=== PATIENT | male | born 1985 | race African-American/Black ===

== ENCOUNTER 2017-02-04 23:36 | Emergency (ER) | payer SELFPAY ==
[~2017-02-04] VITALS: Ht 180.3 cm; Wt 88.0 kg
[~2017-02-04 23:36] MED LIST: Z.0.NO CURRENT MEDS
[2017-02-04 23:37] VITALS: BP 135/85; PULSE 90; RESP 18; TEMP 98.8; O2SAT 100
[2017-02-05] MEDS ORDERED: SODIUM CHLOR 0.9% 1000 ML INJ 1,000 ML IV SCH (00:23)
[2017-02-05] MEDS ORDERED: ONDANSETRON HCL 4 MG/2 ML VIAL IVP ONE (00:30)
[2017-02-05] MEDS ORDERED: MORPHINE SULFATE 4 MG/ML INJ IV PUSH ONE (00:30)
[2017-02-05] MEDS ORDERED: SODIUM CHLORIDE 0.9% FLUSH 10 ML FLUSH IV FLUSH PRN (00:30)
[2017-02-05 00:42] LABS: AUTOMATED NEUTROPHIL # 2.8 TH/MM3 (1.8-7.7); BASOPHIL % 0.3 % (0.0-2.0); EOSINOPHIL # 0.1 TH/MM3 (0-0.4); EOSINOPHIL % 1.2 % (0.0-4.0); HEMO FLAGS DIFF FINAL; LYMPH % 56.9 % (9.0-44.0); LYMPHOCYTE # 4.9 TH/MM3 (1.0-4.8); MEAN CELL VOLUME 81.5 FL (80.0-100.0); MEAN CORPUSCULAR HEMOGLOBIN 27.2 PG (27.0-34.0); MEAN CORPUSCULAR HGB CONC 33.4 % (32.0-36.0); MONO % 9.1 % (0.0-8.0); NEUT % 32.5 % (16.0-70.0); PLATELET COUNT 160 TH/MM3 (150-450); RED BLOOD COUNT 4.91 MIL/MM3 (4.50-5.90); RED CELL DISTRIBUTION WIDTH 13.5 % (11.6-17.2); WHITE BLOOD COUNT 8.7 TH/MM3 (4.0-11.0)
[2017-02-05 00:55] VITALS: RESP 16
[2017-02-05 00:55] LABS: APTT (PATIENT) 21.9 SEC (24.3-30.1); PROTHROMBIN TIME - PATIENT 10.5 SEC (9.8-11.6)
--- NOTE | 2017-02-05 01:05 | PD ---
HPI Chief Complaint: Abdominal Pain Time Seen by Provider: 00:17 Travel History International Travel<30 days: No Contact w/Intl Traveler<30days: No Traveled to known affect area: No History of Present Illness HPI Patient is a 31-year-old male who presents to emergency room with complaints of right lower quadrant abdominal pain. Patient reports that he was sleeping tonight, reports that he woke up with severe pain to his right lower quadrant. Patient reports no fevers or chills, denies any nausea or vomiting. Reports that he last had a bowel movement yesterday. Patient denies any dysuria, urinary frequency or frequency. PFSH Past Medical History Medical History: Denies Significant Hx Diminished Hearing: No Immunizations Current: No Past Surgical History Surgical History: No Previous Surgery Social History Alcohol Use: Yes (OCC) Tobacco Use: No Substance Use: No Allergies-Medications (Allergen,Severity, Reaction): Coded Allergies: No Known Allergies (Verified , 02/05/17) Reported Meds & Prescriptions Reported Meds & Active Scripts Active Ibuprofen 600 Mg Tab 600 Mg PO Q6H PRN Percocet (Oxycodone-Acetaminophen) 2.5-325 mg Tab 1 Tab PO Q6H PRN Flomax (Tamsulosin HCl) 0.4 Mg Cap 0.4 Mg PO HS Review of Systems General / Constitutional: No: Fever Eyes: No: Visual changes HENT: No: Headaches Cardiovascular: No: Chest Pain or Discomfort Respiratory: No: Shortness of Breath Gastrointestinal: Positive: Abdominal Pain, No: Nausea, Vomiting Genitourinary: No: Dysuria Musculoskeletal: No: Pain Skin: No Rash Neurologic: No: Weakness Psychiatric: No: Depression Endocrine: No: Polydipsia Hematologic/Lymphatic: No: Easy Bruising Physical Exam Narrative GENERAL: Moderate distress SKIN: Focused skin assessment warm/dry. HEAD: Atraumatic. Normocephalic. EYES: Pupils equal and round. No scleral icterus. No injection or drainage. ENT: No nasal bleeding or discharge. Mucous membranes pink and moist. NECK: Trachea midline. No JVD. CARDIOVASCULAR: Regular rate and rhythm. No murmur appreciated. RESPIRATORY: No accessory muscle use. Clear to auscultation. Breath sounds equal bilaterally. GASTROINTESTINAL: Abdomen soft, patient with right lower quadrant tenderness with rebound and guarding on exam MUSCULOSKELETAL: No obvious deformities. No clubbing. No cyanosis. No edema. NEUROLOGICAL: Awake and alert. No obvious cranial nerve deficits. Motor grossly within normal limits. Normal speech. PSYCHIATRIC: Appropriate mood and affect; insight and judgment normal. Data Data Last Documented VS Vital Signs Date Time Temp Pulse Resp B/P Pulse Ox O2 Delivery O2 Flow Rate FiO2 02/05/17 02:40 16 02/05/17 01:58 78 144/74 02/04/17 23:37 98.8 100 Orders Complete Blood Count With Diff (02/05/17:) Comprehensive Metabolic Panel (02/05/17:) Lipase (02/05/17:23) Prothrombin Time / Inr (Pt) (02/05/17:) Act Partial Throm Time (Ptt) (02/05/17:) Urinalysis - C+S If Indicated (02/05/17:23) Ct Abd/Pel W Iv Contrast(Rout) (02/05/17:23) Iv Access Insert/Monitor (02/05/17) Oximetry (02/05/17:) NPO (02/05/17:23) Morphine Inj (Morphine Inj) (02/05/17 00:30) Ondansetron Inj (Zofran Inj) (02/05/17 00:30) Sodium Chlor 0.9% 1000 Ml Inj (Ns 1000 M (02/05/17 00:23) Sodium Chloride 0.9% Flush (Ns Flush) (02/05/17 00:30) Iohexol 350 Inj (Omnipaque 350 Inj) (02/05/17 01:37) Hydromorphone Pf Inj (Dilaudid Pf Inj) (02/05/17 02:00) Ketorolac Inj (Toradol Inj) (02/05/17 02:45) Strain Urine PRN (02/05/17 04:10) Labs Laboratory Tests Test 02/05/17 02/05/17 00:30 03:15 White Blood Count 8.7 TH/MM3 Red Blood Count 4.91 MIL/MM3 Hemoglobin 13.4 GM/DL Hematocrit 40.0 % Mean Corpuscular Volume 81.5 FL Mean Corpuscular Hemoglobin 27.2 PG Mean Corpuscular Hemoglobin 33.4 % Concent Red Cell Distribution Width 13.5 % Platelet Count 160 TH/MM3 Mean Platelet Volume 9.7 FL Neutrophils (%) (Auto) 32.5 % Lymphocytes (%) (Auto) 56.9 % Monocytes (%) (Auto) 9.1 % Eosinophils (%) (Auto) 1.2 % Basophils (%) (Auto) 0.3 % Neutrophils # (Auto) 2.8 TH/MM3 Lymphocytes # (Auto) 4.9 TH/MM3 Monocytes # (Auto) 0.8 TH/MM3 Eosinophils # (Auto) 0.1 TH/MM3 Basophils # (Auto) 0.0 TH/MM3 CBC Comment DIFF FINAL Differential Comment Prothrombin Time 10.5 SEC Prothromb Time International 1.0 RATIO Ratio Activated Partial 21.9 SEC Thromboplast Time Sodium Level 143 MEQ/L Potassium Level 3.3 MEQ/L Chloride Level 106 MEQ/L Carbon Dioxide Level 27.6 MEQ/L Anion Gap 9 MEQ/L Blood Urea Nitrogen 16 MG/DL Creatinine 1.38 MG/DL Estimat Glomerular Filtration 73 ML/MIN Rate Random Glucose 135 MG/DL Calcium Level 8.5 MG/DL Total Bilirubin 0.3 MG/DL Aspartate Amino Transf 15 U/L (AST/SGOT) Alanine Aminotransferase 25 U/L (ALT/SGPT) Alkaline Phosphatase 61 U/L Total Protein 7.7 GM/DL Albumin 3.7 GM/DL Lipase 156 U/L Urine Color YELLOW Urine Turbidity CLEAR Urine pH 7.0 Urine Specific [place] GREATER THAN 1.050 Urine Protein TRACE mg/dL Urine Glucose (UA) NEG mg/dL Urine Ketones 40 mg/dL Urine Occult Blood TRACE Urine Nitrite NEG Urine Bilirubin NEG Urine Urobilinogen LESS THAN 2.0 MG/DL Urine Leukocyte Esterase NEG Urine RBC 8 /hpf Urine WBC 1 /hpf Urine Mucus FEW /lpf Microscopic Urinalysis Comment CULT NOT INDICATED MDM Medical Decision Making Medical Screen Exam Complete: Yes Emergency Medical Condition: Yes Medical Record Reviewed: Yes Interpretation(s) Vital Signs Date Time Temp Pulse Resp B/P Pulse Ox O2 Delivery O2 Flow Rate FiO2 02/05/17 00:55 16 02/05/17 00:55 18 02/04/17 23:37 98.8 90 18 135/85 100 Differential Diagnosis Differential includes appendicitis, gastritis, gastritis, constipation, colitis Narrative Course 31-year-old male who presents to emergency room complaints of right lower quadrant abdominal pain. Patient reports the pain woke him up from sleep tonight. On exam, patient does have right lower quadrant tenderness, I am concerned for possible appendicitis. Lab work including CT of the abdomen pelvis ordered to evaluate for possible appendicitis. Will give IV fluids and pain medications. Patient with no relief of pain after IV morphine administered, IV dilaudid ordered Vital Signs Date Time Temp Pulse Resp B/P Pulse Ox O2 Delivery O2 Flow Rate FiO2 02/05/17 02:40 16 02/05/17 01:58 78 20 144/74 02/05/17 00:55 16 02/05/17 00:55 18 02/04/17 23:37 98.8 90 18 135/85 100 Laboratory Tests Test 02/05/17 02/05/17 00:30 03:15 White Blood Count 8.7 TH/MM3 (4.0-11.0) Red Blood Count 4.91 MIL/MM3 (4.50-5.90) Hemoglobin 13.4 GM/DL (13.0-17.0) Hematocrit 40.0 % (39.0-51.0) Mean Corpuscular Volume 81.5 FL (80.0-100.0) Mean Corpuscular Hemoglobin 27.2 PG (27.0-34.0) Mean Corpuscular Hemoglobin 33.4 % Concent (32.0-36.0) Red Cell Distribution Width 13.5 % (11.6-17.2) Platelet Count 160 TH/MM3 (150-450) Mean Platelet Volume 9.7 FL (7.0-11.0) Neutrophils (%) (Auto) 32.5 % (16.0-70.0) Lymphocytes (%) (Auto) 56.9 % (9.0-44.0) Monocytes (%) (Auto) 9.1 % (0.0-8.0) Eosinophils (%) (Auto) 1.2 % (0.0-4.0) Basophils (%) (Auto) 0.3 % (0.0-2.0) Neutrophils # (Auto) 2.8 TH/MM3 (1.8-7.7) Lymphocytes # (Auto) 4.9 TH/MM3 (1.0-4.8) Monocytes # (Auto) 0.8 TH/MM3 (0-0.9) Eosinophils # (Auto) 0.1 TH/MM3 (0-0.4) Basophils # (Auto) 0.0 TH/MM3 (0-0.2) CBC Comment DIFF FINAL Differential Comment Prothrombin Time 10.5 SEC (9.8-11.6) Prothromb Time International 1.0 RATIO Ratio Activated Partial 21.9 SEC Thromboplast Time (24.3-30.1) Sodium Level 143 MEQ/L (136-145) Potassium Level 3.3 MEQ/L (3.5-5.1) Chloride Level 106 MEQ/L (98-107) Carbon Dioxide Level 27.6 MEQ/L (21.0-32.0) Anion Gap 9 MEQ/L (5-15) Blood Urea Nitrogen 16 MG/DL (7-18) Creatinine 1.38 MG/DL (0.60-1.30) Estimat Glomerular Filtration 73 ML/MIN (>89) Rate Random Glucose 135 MG/DL (74-106) Calcium Level 8.5 MG/DL (8.5-10.1) Total Bilirubin 0.3 MG/DL (0.2-1.0) Aspartate Amino Transf 15 U/L (15-37) (AST/SGOT) Alanine Aminotransferase 25 U/L (12-78) (ALT/SGPT) Alkaline Phosphatase 61 U/L (45-117) Total Protein 7.7 GM/DL (6.4-8.2) Albumin 3.7 GM/DL (3.4-5.0) Lipase 156 U/L (73-393) Urine Color YELLOW (YELLW/STRAW) Urine Turbidity CLEAR (CLEAR) Urine pH 7.0 (5.0-8.5) Urine Specific [place] GREATER THAN 1.050 (1.002-1.035) Urine Protein TRACE mg/dL (NEG-TRACE) Urine Glucose (UA) NEG mg/dL (NEG) Urine Ketones 40 mg/dL (NEG) Urine Occult Blood TRACE (NEG) Urine Nitrite NEG (NEG) Urine Bilirubin NEG (NEG) Urine Urobilinogen LESS THAN 2.0 MG/DL (LESS THAN 2.0) Urine Leukocyte Esterase NEG (NEG) Urine RBC 8 /hpf (0-3) Urine WBC 1 /hpf (0-5) Urine Mucus FEW /lpf (OCC) Microscopic Urinalysis Comment CULT NOT INDICATED Last Impressions Abdomen/Pelvis CT 02/05/17 0023 Signed Impressions: Service Date/Time: Sunday, February 05, 2017 01:38 - CONCLUSION: Miniscule distal right ureteral stone with moderate right hydronephrosis. Giacomo Zepeda MD Patient reevaluated, patient feeling much better at this time. I reviewed all labs and all studies as well as all findings with patient in detail. Patient will follow-up with his primary care doctor as well as urologist and return to the emergency room as needed. Patient will strain his urine, will bring his kidney stone to his urologist office for follow-up. Patient understands that he should not drive while taking narcotic pain medications Diagnosis Primary Impression: Kidney stone Additional Impressions: Hydronephrosis Renal insufficiency Referrals: Kenney Macias DO Patient Instructions: Narcotic given in the ED, General Instructions Departure Forms: Tests/Procedures, Work Release Enter return to work date: Feb 09, 2017 Additional Instructions: Please provide patient with a copy of his lab work and studies at discharge Please strain your urine A kidney stone to urologist for evaluation of stone Please call urologist first thing in the morning for earliest follow-up Do not drive while taking narcotic pain medications Return to ER as needed Med/Other Pt SpecificInfo: Prescription(s) given Scripts Ibuprofen 600 Mg [id number] Mg PO Q6H PRN (Pain/Inflammation) #40 TAB Ref 0 Prov:Angie Hanna DO 02/05/17 Oxycodone-Acetaminophen (Percocet)2.5-325 mg Tab1 Tab PO Q6H PRN (PAIN SCALE 1 TO 10) #12 TAB Ref 0 Prov:JacquesAngie Mallory DO 02/05/17 Tamsulosin (Flomax)0.4 Mg Cap0.4 Mg PO HS #7 CAP Ref 0 Prov:Angie Hanna DO 02/05/17 Disposition: DISCHARGE HOME Condition: Stable HannaAngie DO Feb 05, 2017 01:05
[2017-02-05 01:25] LABS: ALT (GPT) 25 U/L (12-78); ANION GAP 9 MEQ/L (5-15); AST (GOT) 15 U/L (15-37); BICARBONATE 27.6 MEQ/L (21.0-32.0); BLOOD UREA NITROGEN 16 MG/DL (7-18); CHLORIDE 106 MEQ/L (98-107); GLOMERULAR FILTRATION RATE 73 ML/MIN (>89); POTASSIUM 3.3 MEQ/L (3.5-5.1); SODIUM (NA) 143 MEQ/L (136-145)
[2017-02-05 01:27] LABS: ALKALINE PHOSPHATASE 61 U/L (45-117); TOTAL BILIRUBIN ADULT 0.3 MG/DL (0.2-1.0)
[2017-02-05] MEDS ORDERED: IOHEXOL 350 MG/ML 10 ML VIAL (for RAD DIAG) IV ONE (01:37)
[2017-02-05 01:58] VITALS: BP 144/74; PULSE 78; RESP 20
[2017-02-05] MEDS ORDERED: HYDROmorphone HCL PF 1 MG/ML VIAL IV PUSH ONE (02:00)
--- NOTE | 2017-02-05 02:34 | RADRPT ---
EXAM DATE/TIME: 02/05/2017 01:38 [facility] COMPARISON: No previous studies available for comparison. INDICATIONS : Right sided abdominal pain. IV CONTRAST: 96 cc Omnipaque 350 (iohexol) IV ORAL CONTRAST: No oral contrast ingested. RADIATION DOSE: 8.90 CTDIvol (mGy) MEDICAL HISTORY : None SURGICAL HISTORY : None. ENCOUNTER: Initial ACUITY: 1 day PAIN SCALE: 6/10 LOCATION: abdomen TECHNIQUE: Volumetric scanning of the abdomen and pelvis was performed. Using automated exposure control and ad justment of the mA and/or kV according to patient size, radiation dose was kept as low as reasonably achievable to obtain optimal diagnostic quality images. DICOM format image data is available electro nically for review and comparison. FINDINGS: LOWER LUNGS: The visualized lower lungs are clear. LIVER: Homogeneous density without lesion. There is no dilation of the biliary tree. No calcified gallston es. SPLEEN: Normal size without lesion. PANCREAS: Within normal limits. KIDNEYS: The right kidney is notable for mildly diminished relative enhancement and mild fullness of the colle cting system. There is a miniscule distal right ureteral stone just proximal to the ureterovesical ju nction. The left kidney is unremarkable. ADRENAL GLANDS: Within normal limits. VASCULAR: There is no aortic aneurysm. BOWEL/MESENTERY: The stomach, small bowel, and colon demonstrate no acute abnormality. There is no free intraperitone al air or fluid. ABDOMINAL WALL: Within normal limits. RETROPERITONEUM: There is no lymphadenopathy. BLADDER: No wall thickening or mass. REPRODUCTIVE: Within normal limits. INGUINAL: There is no lymphadenopathy or hernia. MUSCULOSKELETAL: Within normal limits for patient age. CONCLUSION: Miniscule distal right ureteral stone with moderate right hydronephrosis. Giacomo Zepeda MD on February 05, 2017 at 2:29 Board Certified Radiologist. This report was verified electronically.
[2017-02-05 02:40] VITALS: RESP 16
[2017-02-05] MEDS ORDERED: KETOROLAC TROMETHAMINE 30 MG/ML (IVP) VIAL IV PUSH ONE (02:45)
[2017-02-05 03:43] LABS: BLOOD, URINE TRACE (NEG); COMMENT (UR) CULT NOT INDICATED; CULTURE IF INDICATED CULT NOT INDICATED; GLUCOSE,URINE NEG (NEG); KETONE, URINE 40 mg/dL (NEG); MUCUS URINE FEW /lpf (OCC); NITRITE,URINE NEG (NEG); URINE COLOR YELLOW (YELLW/STRAW)
[2017-02-05] MEDS ORDERED: PERC2.5T PO (04:12)
[2017-02-05] MEDS ORDERED: IBUP-232 PO (04:12)
[2017-02-05] MEDS ORDERED: TAMS5CAP PO (04:12)
--- NOTE | 2017-02-05 12:22 | EKG ---
Date Performed: 02/05/2017 Time Performed: 00:17:17 PTAGE: 31 years EKG: Sinus rhythm VOLTAGE CRITERIA FOR LVH ABNORMAL ECG NO PREVIOUS TRACING DOCTOR: Quique Cat Interpretating Date/Time 02/05/2017 12:19:45
== END 2017-02-05 04:24 | disposition home or self-care (01) ==
LOC: NEPC 23:36
DX: N20.2 Calculus of kidney with calculus of ureter (principal)
CPT/HCPCS: 74177; 80053; 81001; 83690; 85025; 85610; 85730; 93005; 96361; 96374; 96375; 99285; J1170; J2270; J2405; J7030; Q9967